=== PATIENT | female | born 1975 | race Caucasian/White ===

== ENCOUNTER 2017-05-14 05:24 | Emergency (ER) | payer SELFPAY ==
[~2017-05-14] VITALS: Ht 157.5 cm; Wt 82.0 kg
[2017-05-14] MEDS ORDERED: TETANUS, DIPHTHERIA, PERTUSSIS VAC/PF 0.5ML (>7YR OLD) IM ONE (06:30)
[2017-05-14] MEDS ORDERED: MORPHINE SULFATE 4 MG/ML CPJ (NOT FOR IM USE) IV ONE (06:30)
[2017-05-14] MEDS ORDERED: ONDANSETRON HCL 4MG/2ML VIAL IV ONE (06:30)
[2017-05-14 07:34] LABS: HCG SCREEN NEGATIVE
[2017-05-14] MEDS ORDERED: IBUPROFEN 400MG TABLET PO ONE (08:00)
[2017-05-14 08:22] VITALS: BP 145/90
== END 2017-05-14 08:25 | disposition home or self-care (01) ==
LOC: ER 05:35
DX: S09.90XA Unspecified injury of head, initial encounter (principal); S70.212A Abrasion, left hip, initial encounter; Y08.89XA Assault by other specified means, initial encounter; Y93.89 Activity, other specified; Y92.89 Other specified places as the place of occurrence of the external cause; Y99.8 Other external cause status; R58 Hemorrhage, not elsewhere classified
CPT/HCPCS: 70450; 72125; 72128; 72131; 84703; 90471; 90715; 96361; 96374; 99285; J2270; J2405; Z7610